=== PATIENT | male | born 1960 | race African-American/Black ===

== ENCOUNTER 2020-10-20 19:35 | Emergency (ER) | payer MEDICAID ==
[~2020-10-20] VITALS: Ht 188 cm; Wt 90.7 kg
[2020-10-20 20:00] VITALS: BP 120/65
[2020-10-20] MEDS ORDERED: Lidocaine 1% MPF 10mg/ml 5ml INJ ONE (20:15)
[2020-10-20] MEDS ORDERED: VIBRAMYCIN100 MG ORAL (20:16)
[2020-10-20 20:36] LABS: APPEARANCE,URINE CLEAR; BILIRUBIN, URINE NEGATIVE (NEGATIVE); COLOR,URINE PALE YELLOW; GLUCOSE, URINE (UA) NEGATIVE (NEGATIVE); KETONES,URINE NEGATIVE (NEGATIVE); LEUKOCYTE ESTERASE ,URINE 1+ (NEGATIVE); NITRITE,URINE NEGATIVE (NEGATIVE); PH,URINE 6 (4.5-8.0); PROTEIN,URINE NEGATIVE (NEGATIVE); UROBILINOGEN,URINE NORMAL MG/DL (0.0-1.0)
[2020-10-20 21:15] VITALS: BP 121/66
--- NOTE | 2020-10-21 13:57 | Emergency Room Report ---
History of Present Illness General Chief Complaint: Male Urogenital Problems Source: Patient Present Illness HPI Patient is a 60-year-old male presents for increased dysuria. Gradual onset. Reports having onset of symptoms in the past few days. States that his girlfriend had recently tested positive for chlamydia. Had no penile discharge or skin lesions noted. Reports having increased burning sensation. Denies any discharge. Had not been having any testicular swelling. Requesting treatment for possible STD exposure Allergies: Coded Allergies: No Known Allergies (Unverified , 10/20/20) COVID-19 Screening Contact w/high risk pt: No Experienced COVID-19 symptoms?: No COVID-19 Testing performed HIGH PRESSURE OPERATOR: No Patient History Past Medical History: see triage record Reviewed Nursing Documentation: PMH: Agreed; PSxH: Agreed Nursing Documentation-PMH Past Medical History: No Stated History Review of Systems All Other Systems: negative except mentioned in HPI Physical Exam Vital Signs Date Time Temp Pulse Resp B/P (MAP) Pulse Ox O2 Delivery O2 Flow Rate FiO2 10/20/20 19:46 98.1 91 16 120/65 (83) 94 Room Air General Appearance: well appearing, no apparent distress, alert, GCS 15, non- toxic Head: normocephalic, atraumatic ENT: hearing grossly normal, normal voice Neck: full range of motion, supple Respiratory: lungs clear, no respiratory distress, speaking full sentences Cardiovascular #1: normal inspection Gastrointestinal: normal inspection Musculoskeletal: normal inspection, no calf tenderness Neurologic: alert, motor strength/tone normal, solid waste management engineer III-XII nml as tested, oriented x3, normal gait Psychiatric: mood/affect normal Skin: no rash Medical Decision Making Diagnostic Impression: Primary Impression: Urethritis ER Course Patient presented for dysuria. Differential diagnosis include was not limited to urethritis, urinary tract infection, prostatitis among others. Patient has a benign exam and does not appear to require any imaging or laboratory testing at this time. Urinalysis showed some slight evidence of urinary infection. Patient was given treatment with Rocephin as well as given prescription for doxycycline. He was advised to use condoms. He was advised to have full battery of STD checks with his primary care physician. He was advised to return if worse. This medical record is generated with [employer] real estate director software. There may be some real estate director discrepancies related to use of this software Labs Test 10/20/20 20:00 Urine Color Pale yellow Urine Appearance Clear Urine pH 6 (4.5-8.0) Urine Specific [place] 1.010 (1.005-1.035) Urine Protein Negative (NEGATIVE) Urine Glucose (UA) Negative (NEGATIVE) Urine Ketones Negative (NEGATIVE) Urine Blood Negative (NEGATIVE) Urine Nitrite Negative (NEGATIVE) Urine Bilirubin Negative (NEGATIVE) Urine Urobilinogen Normal MG/DL (0.0-1.0) Urine Leukocyte Esterase 1+ (NEGATIVE) Urine RBC 0-2 /HPF (0 - 0) Urine WBC 0-2 /HPF (0 - 0) Urine Squamous Epithelial Cells None /LPF (NONE/OCC) Urine Bacteria None /HPF (NONE) Last Vital Signs Date Time Temp Pulse Resp B/P (MAP) Pulse Ox O2 Delivery O2 Flow Rate FiO2 10/20/20 21:15 98.1 78 16 121/66 96 Room Air Status: improved Disposition: HOME, SELF-CARE Condition: Stable Scripts Doxycycline Hyclate* (VIBRAMYCIN*) 100 Mg Capsule 100 MG ORAL EVERY 12 HOURS, #14 CAP 0 Refills Prov: Celestino George MD 10/20/20 Referrals: [facility],REFERRING (PCP) Patient Instructions: Urethritis, Adult Additional Instructions: Follow up with your doctor for recheck. Return if worse. Celestino George MD Oct 21, 2020 13:57
== END 2020-10-20 21:15 | disposition home or self-care (01) ==
LOC: EMR 20:10
DX: N34.2 Other urethritis (principal)
CPT/HCPCS: 81003; 96372; J0696; Z7502; 99283